=== PATIENT | female | born 1955 | race African-American/Black ===

== ENCOUNTER 2018-02-26 15:42 | Emergency (ER) | payer OTHER ==
[2018-02-26 16:17] LABS: #Basophils 0.1 thou/uL (0.0-0.2); #Lymphocytes 2.5 thou/uL (1.20-3.40); #Monocytes 0.5 thou/uL (0.11-0.59); #Neutrophils 2.8 thou/uL (1.40-6.50); %Basophils 1.3 % (0.0-1.0); %Eosinophils 0.7 % (0.0-10.0); %Lymphocytes 42.6 % (21.0-51.0); %Neutrophils 46.3 % (42.0-75.0); Hemoglobin 13.8 g/dL (12.0-16.0); Mean Corpuscular HGB CONC 34.1 g/dL (32.0-36.0); Mean Corpuscular Hemoglobin 29.2 pg (27.0-31.0); Mean Corpuscular Volume 85.5 fl (81.0-99.0); Mean Platelet Volume 8.5 fL (7.4-10.4); Platelet Count 221 thou/uL (130-400); RBC Distribution Width 12.4 % (11.5-14.5); Red Blood Cell (RBC) Count 4.72 mill/uL (4.20-5.40)
[2018-02-26 16:34] LABS: Bilirubin Negative (Negative); Blood, Urine Small (Negative); Clarity CLOUDY (Clear); Glucose, Urine (Dipstick) Negative (Negative); Leukocyte Moderate (Negative); Nitrite Positive (Negative); Protein, Urine (Dipstick) Negative (Neg-Trace); Specific Gravity, Urine 1.019 (1.002-1.036)
[2018-02-26 16:37] LABS: Bacteria/HPF 4+ HPF (None Seen); Hyaline Casts/LPF 0-3 HYALINE CAST LPF (0-3 Hyaline); Pathc Cast-AUWi Flag 0.14 (0-2.49); Squamous Epithelial 0-3 HPF (0-3); WBC/HPF 21-50 HPF (0-3)
[2018-02-26 16:37] LABS: ALT (SGPT) 17 U/L (8-55); AST (SGOT) 15 U/L (5-34); Albumin 4.5 g/dL (3.4-4.8); Alkaline Phosphatase 108 U/L (40-150); Anion Gap 17 mmol/L (10-20); BUN (Urea Nitrogen) 28 mg/dL (9.8-20.1); Bilirubin, Total 0.4 mg/dL (0.2-1.2); Calc. Creatinine Clearance 0 mL/min (70-130); Calcium 10.4 mg/dL (7.8-10.44); Carbon Dioxide 26 mmol/L (23-31); Chloride 99 mmol/L (98-107); Estimated GFR-MDRD 62; Globulin 3.1 g/dL (2.4-3.5); Glucose 160 mg/dL (80-115); Lipase 47 U/L (8-78); Potassium 3.9 mmol/L (3.5-5.1); Protein, Total 7.6 g/dL (6.0-8.3); Sodium 138 mmol/L (136-145)
--- NOTE | 2018-02-26 17:59 | ULT ---
RIGHT UPPER QUADRANT ABDOMINAL ULTRASOUND: 02/26/18 HISTORY: Abdominal pain and nausea. COMPARISON: CT of the abdomen 02/18/06. TECHNIQUE: Multiplanar bashir scale and color doppler images were obtained in a right upper quadrant abdominal ult rasound. FINDINGS: There is a complex mixed hyperechoic and hypoechoic lesion in the right lobe of the liver measuring 5 .7 x 3.7 x 5.9 cm in size. No biliary dilatation is seen. The gallbladder is full of stones without g allbladder wall thickening or pericholecystic fluid. The common bile duct is normal measuring 4 mm. L imited visualization of the pancreas is unremarkable. The right kidney is normal in echogenicity with out hydronephrosis or calculus and measures 11.2 cm in length. IMPRESSION: 1. Cholelithiasis. 2. There is a complex mass in the right lobe of the liver which is both hyperechoic and hypoecho ic. This most likely corresponds to a lesion seen on prior CT which represented a hemangioma. POS: KEVIN
== END 2018-02-26 18:07 | disposition home or self-care (01) ==
LOC: ERS 15:42
DX: K80.20 Calculus of gallbladder without cholecystitis without obstruction (principal); N30.01 Acute cystitis with hematuria; E11.9 Type 2 diabetes mellitus without complications; E78.5 Hyperlipidemia, unspecified; I10 Essential (primary) hypertension; Z87.891 Personal history of nicotine dependence; Z79.84 Long term (current) use of oral hypoglycemic drugs; Z79.899 Other long term (current) drug therapy
CPT/HCPCS: 76705; 80053; 81003; 81015; 83690; 85025

== ENCOUNTER 2018-08-09 19:07 | Emergency (ER) | payer OTHER ==
[2018-08-09 19:59] LABS: #Eosinphils 0.1 thou/uL (0.0-0.7); #Lymphocytes 2.5 thou/uL (1.20-3.40); #Monocytes 0.5 thou/uL (0.11-0.59); %Basophils 0.2 % (0.0-1.0); %Eosinophils 0.9 % (0.0-10.0); %Lymphocytes 35.2 % (21.0-51.0); %Monocytes 7.6 % (0.0-10.0); %Neutrophils 56.1 % (42.0-75.0); Hemoglobin 12.8 g/dL (12.0-16.0); Mean Corpuscular HGB CONC 33.5 g/dL (32.0-36.0); Mean Corpuscular Hemoglobin 29.1 pg (27.0-31.0); Mean Corpuscular Volume 86.7 fL (78.0-98.0); Mean Platelet Volume 9.7 fL (7.4-10.4); Platelet Count 241 thou/uL (130-400); RBC Distribution Width 12.6 % (11.5-14.5); Red Blood Cell (RBC) Count 4.39 mill/uL (4.20-5.40); White Blood Cell (WBC) Count 7.1 thou/uL (4.8-10.8)
[2018-08-09 20:19] LABS: ALT (SGPT) 11 U/L (8-55); AST (SGOT) 11 U/L (5-34); Albumin 4.2 g/dL (3.4-4.8); Alkaline Phosphatase 92 U/L (40-150); Anion Gap 15 mmol/L (10-20); BUN (Urea Nitrogen) 17 mg/dL (9.8-20.1); Bilirubin, Total 0.3 mg/dL (0.2-1.2); Calc. Creatinine Clearance 0 mL/min (70-130); Calcium 9.8 mg/dL (7.8-10.44); Carbon Dioxide 26 mmol/L (23-31); Chloride 102 mmol/L (98-107); Estimated GFR-MDRD 72; Globulin 2.8 g/dL (2.4-3.5); Glucose 296 mg/dL (80-115); Potassium 3.6 mmol/L (3.5-5.1); Sodium 139 mmol/L (136-145)
[2018-08-09 21:17] LABS: Bilirubin Negative (Negative); Blood, Urine Trace (Negative); Clarity CLOUDY (Clear); Glucose, Urine (Dipstick) 250 mg/dL (Negative); Leukocyte Small (Negative); Nitrite Negative (Negative); Protein, Urine (Dipstick) Negative (Neg-Trace); Specific Gravity, Urine 1.013 (1.002-1.036); pH, Urine 6.5 (5.0-9.0)
[2018-08-09 21:18] LABS: Bacteria/HPF 3+ HPF (None Seen); Hyaline Casts/LPF 0-3 HYALINE CAST LPF (0-3 Hyaline); Pathc Cast-AUWi Flag 0.14 (0-2.49); RBC/HPF 0-3 HPF (0-3); Squamous Epithelial 0-3 HPF (0-3); WBC/HPF 21-50 HPF (0-3)
[2018-08-09 21:35] LABS: CKMB 2.2 ng/mL (0-6.6); Troponin I Less than 0.010 ng/mL (< 0.028)
== END 2018-08-09 21:51 | disposition home or self-care (01) ==
LOC: ERS 19:07
DX: R42 Dizziness and giddiness (principal); N39.0 Urinary tract infection, site not specified; E11.9 Type 2 diabetes mellitus without complications; E78.5 Hyperlipidemia, unspecified; I10 Essential (primary) hypertension; Z87.891 Personal history of nicotine dependence; Z79.899 Other long term (current) drug therapy; Z79.4 Long term (current) use of insulin
CPT/HCPCS: 36415; 80053; 81003; 81015; 82553; 84484; 85025; 93005

== ENCOUNTER 2018-11-05 10:30 | Emergency (ER) | payer OTHER ==
--- NOTE | 2018-11-05 13:50 | RAD ---
RIGHT HIP RADIOGRAPHS TWO VIEWS: 11/05/2018 PROVIDED CLINICAL HISTORY: Right hip pain, status post injury. COMPARISON: 06/19/2015 FINDINGS: There is prominent degenerative arthrosis involving the right hip, advanced with respect to the prior study. There is no evidence for fracture or other acute osseous abnormality. Alignment appears kristofer tomic. No lytic or blastic lesions are seen. IMPRESSION: Severe right hip degenerative change without evidence for an acute osseous abnormality. POS: KEVIN
--- NOTE | 2018-11-05 13:52 | RAD ---
LUMBAR SPINE RADIOGRAPHS THREE VIEWS: 11/05/2018 PROVIDED CLINICAL HISTORY: Trauma. COMPARISON: 06/19/2015 FINDINGS: Left convexity scoliosis of the lumbar spine is again demonstrated, which appears worsened with respe ct to the prior study. There is grade 2 anterolisthesis of L4 on L5. Sagittal lumbar alignment appe ars otherwise normal. Vertebral body heights appear preserved. Advanced multilevel lower lumbar dis k and facet degenerative change is seen. IMPRESSION: Scoliosis and advanced lumbar degenerative change without evidence for an acute osseous abnormality. POS: KEVIN
== END 2018-11-05 14:03 | disposition home or self-care (01) ==
LOC: ERS 10:30
DX: S39.012A Strain of muscle, fascia and tendon of lower back, initial encounter (principal); S76.012A Strain of muscle, fascia and tendon of left hip, initial encounter; S76.011A Strain of muscle, fascia and tendon of right hip, initial encounter; E11.9 Type 2 diabetes mellitus without complications; I10 Essential (primary) hypertension; E78.5 Hyperlipidemia, unspecified; Z87.891 Personal history of nicotine dependence; Z79.4 Long term (current) use of insulin; Z79.899 Other long term (current) drug therapy; V89.2XXA Person injured in unspecified motor-vehicle accident, traffic, initial encounter
CPT/HCPCS: 72100

== ENCOUNTER 2018-12-01 09:45 | Outpatient (CLI) | payer OTHER ==
--- NOTE | 2018-12-01 11:23 | ULT ---
LIMITED RIGHT BREAST ULTRASOUND: HISTORY: A 63-year-old female presents for right breast ultrasound to evaluate a mass seen on prior mammogram. FINDINGS: There is a solid, poorly circumscribed mass, somewhat hypoechoic, at 10 o'clock, 10 cm from the nippl e, measuring 1.2 x 1.4 x 1.4 cm in size, corresponding to the mammographic finding. IMPRESSION: BI-RADS category 4-Suspicious finding. Solid mass in the right breast, at 10 o'clock, 10 cm from the nipple, corresponding to the mammographic area of concern. Follow-up ultrasound-guided biopsy is re commended for further evaluation. Findings were discussed with the patient, who is in agreement. Additionally, the referring physician 's office was notified of the scheduling of the right breast ultrasound-guided biopsy, by Hermelinda Corona . CODE CR POS: OFF
== END 2018-12-01 09:46 | disposition home or self-care (01) ==
LOC: BICULT 09:45
PROVIDERS: ATTEND Family Medicine
DX: R92.8 Other abnormal and inconclusive findings on diagnostic imaging of breast (principal); N63.11 Unspecified lump in the right breast, upper outer quadrant